=== PATIENT | male | born 1985 | race Hispanic/Latino ===

== ENCOUNTER 2023-06-25 00:39 | Inpatient (IN) | payer OTHER, SELFPAY ==
[2023-06-24 21:57] VITALS: BMI 25.4
[2023-06-24 22:02] VITALS: BP 130/91
--- NOTE | 2023-06-24 22:28 | ED.GENMED ---
History of Present Illness
General
Chief Complaint: Alcohol Problem
Source: patient
Exam Limitations: none
Time Seen by Provider: 06/24/23 22:20
Travel History
Have you had any contact with someone who has COVID-19?: No
Do you have any symptoms of coronavirus? Fever > 100 degrees, chills, cough, shortness of breath, sore throat, loss of taste or smell, muscle aches, or headache?: No
History of Present Illness
History of Present Illness:
27-year-old male complaining of recurrent vomiting started this morning. Drank the last 4 days about a case per day of beer. Last drink this morning. No unusual agitation or hallucinations. History of alcohol use but stopped until the last 3
weeks. Vomited a small amount of blood before ER arrival but not a large glob. No chest pain or shortness of breath.
Past History
Past History
ED Past Medical History: Other (Substance abuse)
Social History
Personal:
Living: with family
Employment: Employed
Review of Systems
Review of Systems
All Other Systems: Not applicable
Respiratory: Reports no symptoms
Cardiac: Reports no symptoms
ABD/GI: Denies abdominal pain
Phy Exam
Physical Exam
Physical Exam:
GENERAL: Alert and oriented. Dry heaving on arrival to the ER. Cooperative.
EYE: Orbits normal.
NECK: Supple
ENT: Pharynx with mild erythema
CARDIAC: Regular rate and rhythm without any obvious murmurs.
LUNGS: Clear breath sounds,normal
ABDOMEN: Soft, without focal tenderness or distention
NEUROLOGICAL: Alert and oriented , grossly non-focal
SKIN: Warm and dry, no rash or lesion, no discoloration, skin intact.
MUSCULOSKELETAL: No edema,no deformity.Good color
PSYCH: Normal and appropriate interaction.
Scores
Withdrawal Assessment of Alcohol
Withdrawal Assessment Completed?: Not applicable
Course
Orders/Labs/Results
Orders:
Orders
06/24/23 22:13
Electrocardiogram (*1) Urgent
Reason for Study: Tachycardia
EKG- Treatment ONCE
06/24/23 22:14
Cardiac Monitoring- Treatment ONCE
06/24/23 22:17
Alcohol Urgent
CMP [Comprehensive Metabolic Panel] Urgent
Complete Blood Count/With Diff Urgent
Lipase Urgent
06/24/23 22:19
Type+Screen Urgent
06/24/23 22:21
PTT Urgent
Prothrombin Time Urgent
06/24/23 22:25
IV Insert/Care/Rem.- Treatment PRN
Urinalysis Reflex To Culture Urgent
0.9% Sodium Chloride 1000 ml [Nss] 1,000 ml IV BOLUS
Ondansetron Injectable [Zofran] 4 mg IV NOW STA
Pantoprazole [Protonix IV] 40 mg IV NOW STA
06/24/23 23:00
0.9% Sodium Chloride 1000 ml [Nss] 1,000 ml Mvi, Adult [Multivitamin] 10 ml Thiamine Injection 100 mg IV 250 mls/hr
06/24/23 23:45
Dextrose 5%/0.9%Sodchl 1000 ml [D5/0.9% Sodium Chloride] 1,000 ml IV 150 mls/hr
Abnormal Lab Results
06/24/23
22:17
WBC 15.5 H 10^3/uL
(4.8-10.8)
Abs Immat Gran (auto) 0.1 H 10^3/uL
(0-0.05)
Absolute Neuts (auto) 13.1 H 10^3/uL
(1.4-6.5)
Immature Gran % 0.6 H %
(0-0.5)
Neutrophils % 84.2 H %
(42.2-75.2)
Lymphocytes % 13.0 L %
(20.5-51.1)
Carbon Dioxide 14 L* mmol/L
(22-30)
Glucose 160 H mg/dl
(70-99)
Calcium 10.4 H mg/dl
(8.4-10.2)
Alkaline Phosphatase 128 H U/L
(38-126)
Total Protein 9.4 H g/dl
(6.3-8.2)
Albumin 5.9 H g/dl
(3.5-5.0)
06/24/23 22:17
06/24/23 22:17
Vital Signs
Initial and Last Documented VS:
Initial Vital Signs
Temp Pulse Resp BP Pulse Ox
98.4 F 110 22 130/91 99
06/24/23 22:02 06/24/23 22:02 06/24/23 22:02 06/24/23 22:02 06/24/23 22:02
Last Documented Vital Signs
Temp Pulse Resp BP Pulse Ox
98.4 F 110 22 130/91 99
06/24/23 22:02 06/24/23 22:02 06/24/23 22:02 06/24/23 22:02 06/24/23 22:02
MDM/Problems Addressed
Differential Diagnosis Includes:
Alcoholic gastritis, alcoholic ketoacidosis, doubt withdrawal. Drank up till this morning. As far as the hematemesis, likely a mild Michelle-Martins tear. Doubt Boerhaave syndrome.
*Critical Care Note
Total Time (30-74mins, 75-104mins- exclusive of procedures): Not Applicable
Update Note
Update Note:
Consistent with alcoholic ketoacidosis. Possible gastritis and possible mild Michelle-Martins tear. Warrants inpatient management
ED Attending Note
-
Portions of this chart may have been created with voice recognition software.� Occasional wrong word or��sound alike� substitutions may have occurred due to the inherent limitations of voice recognition software.
Discharge Plan
Departure
Patient Disposition: Admit
Date of Disposition: 06/25/23
Time of Disposition: 00:05
Presentation/result/management discussed w/ accepting MD/DO: Hospitalist
Discharge Problem:
Alcoholic ketoacidosis, Alcoholic gastritis, Possible Michelle-Martins tear
Prescriptions:
No Action
No Current Medications
0
Referrals:
Isabella Mayorga CRNP [Family Provider] -
Interventions
Interventions:
*Neglect/Abuse Screening Last Done: 06/24/23 22:10
ED- Fall Risk Assessment Last Done: 06/24/23 22:11
*ED COVID-19 Vaccine History Last Done: 06/24/23 22:10
ED- Neurological Assessment Last Done: 06/24/23 22:47
ED-Psychological Assessment Last Done: 06/24/23 22:58
[2023-06-24 22:30] VITALS: BP 135/88
[2023-06-24 22:35] LABS: % Basophils 0.5 % (0-2); % Immature Granulocytes 0.6 % (0-0.5); % Monocytes 1.7 % (1.7-9.3); % Neutrophils 84.2 % (42.2-75.2); Absolute Basophils 0.1 10^3/uL (0-0.2); Absolute Immature Granulocytes 0.1 10^3/uL (0-0.05); Absolute Monocytes 0.3 10^3/uL (0.1-0.6); Absolute Neutrophils 13.1 10^3/uL (1.4-6.5); Hematocrit 46.7 % (39.0-52.0); Hemoglobin 16.9 g/dL (13.0-18.0); Mean Corp Hgb Conc. 36.2 g/dL (33.0-37.0); Mean Corpuscular Hgb 30.8 pg (27.0-31.0); Mean Corpuscular Volume 85.2 fL (80.0-94.0); Mean Platelet Volume 9.3 fL (7.4-10.4); Nucleated Red Blood Cells % 0 % (-); Platelet Count 362 10^3/uL (130-400); Red Blood Cell Count 5.48 10^6/uL (4.70-6.10); Red Cell Dist. Width 13.5 % (11.5-14.5); White Blood Cell Count 15.5 10^3/uL (4.8-10.8)
[2023-06-24 22:51] LABS: INR 1.01; PT 13.1 Sec (11.4-14.6)
--- NOTE | 2023-06-24 22:52 | EDRN ---
started vomiting and has vomited all day. Pt now dry heaving with occ mucus liquid that is coffee ground like.
[2023-06-24 23:00] VITALS: BP 142/102
[2023-06-24] MEDS: NSS 1000 IV (23:00)
[2023-06-24] MEDS: ZOFRAN 4 MG IV (23:06)
[2023-06-24] MEDS: PROTONIX IV 40 MG IV (23:10)
[2023-06-24 23:16] LABS: ALT (SGPT) 23 U/L (0-50); AST (SGOT) 39 U/L (17-59); Albumin 5.9 g/dl (3.5-5.0); Alcohol 84 mg/dl; Alkaline Phosphatase 128 U/L (38-126); Blood Urea Nitrogen 9 mg/dl (9-20); Calcium 10.4 mg/dl (8.4-10.2); Carbon Dioxide 14 mmol/L (22-30); Chloride 104 mmol/L (98-107); Estimated Creatinine Clearance 115 ml/min; Glucose 160 mg/dl (70-99); Lipase 99 U/L (23-300); Potassium 3.9 mmol/L (3.5-5.1); Sodium 139 mmol/L (135-145); Total Bilirubin 0.6 mg/dl (0.2-1.3); Total Protein 9.4 g/dl (6.3-8.2); eGFR > 60.00
[2023-06-24] MEDS: MULTIVITAMIN 1011 MG IV (23:19)
[2023-06-24] MEDS: MULTIVITAMIN 1011 ML IV (23:19)
[2023-06-25] VITALS (7 sets, daily range): BP systolic 104–126; BP diastolic 63–94; BMI 25.3
[2023-06-25] MEDS: D5/0.9% SODIUM CHLORIDE 1000 IV (00:29)
--- NOTE | 2023-06-25 00:32 | HPS.HSE ---
Family Physician
-
Family Physician: SUSSY Clakr
Chief Complaint
-
N/V
History of Present Illness
Patient is a 37y M with no significant PMH who presents to ED complaining of N/V x 24 hours. Patient states that he has a prior history of alcohol overuse. He has been completely sober x 4 years. He has been binge drinking since of
last week. His last drink was around 6AM on Saturday morning. Around 9AM on Saturday, he developed N/V and has had intractable symptoms since. Patient reports upper abdominal pain without radiation to the chest, back or lower abdomen. Emesis was
initially bilious but patient then noted some small streaks of blood in the spittle. He had emesis of some black-appearing material here in the ED.
Patient has been treated with IVFs and states that he currently feels markedly improved from admission.
Medical History
Past Medical History
Past Medical History: Reports None
Past Surgical History: Reports None
Social History
Tobacco: Non-smoker
Alcohol: Binge drinker (No alcohol x 4 years then binge drinking this past weekend.)
Drug: Marijuana (Occasional.)
Family History
Family History: Other (Father: DM)
Allergies / Home Medications
Allergies reflects when Allergies were last updated in [facility].
Home Medications with original date entered in [facility]
Allergy/Medication List:
Allergies
Allergy/AdvReac Type Severity Reaction Status Date / Time
No Known Allergies Allergy Unverified 06/24/23 22:01
Home Medications
No Meds [No Current Medications] 06/24/23
Review of Systems
-
History Source: Patient
A 12 point ROS was completed and negative except as noted: Yes
Constitutional: Reports Fatigue; Denies Fever or Chills
Respiratory: Denies Cough or Trouble Breathing
Cardiac: Denies Chest Pain or Palpitations
Abdomen/GI: Reports Abdominal Pain, Nausea and Vomiting; Denies Diarrhea
: Denies Dysuria or Frequency
Musculoskeletal: Denies Joint Pain or Edema
Neurological: Reports Headache; Denies Dizzy
Psych: Denies Depression or Anxiety
Physical Exam
Vital Signs
Vital Signs
Temp Pulse Resp BP Pulse Ox
98.4 F 110 22 130/91 99
06/24/23 22:02 06/24/23 22:02 06/24/23 22:02 06/24/23 22:02 06/24/23 22:02
Physical Exam
General: Other (37y M in mild distress due to nausea /pain.)
HEENT: Other (Dry MM. Injected sclerae.)
Respiratory: Clear; No Wheezes, Rales or Rhonchi
Cardiac: S1/S2 and Regular Rhythm; No Murmur
GI: Soft, Non Tender, Non Distended and Normal Bowel Sounds
Musculoskeletal: No Clubbing, No Cyanosis and No Edema
Neuro: AO x 3 and Nonfocal/grossly intact
Laboratory Results
-
06/24/23 22:17
06/24/23 22:17
Laboratory Results
PT 13.1 Sec (11.4-14.6) 06/24/23 22:21
INR 1.01 06/24/23 22:21
APTT 24.0 Sec (23.4-35.0) 06/24/23 22:21
Total Bilirubin 0.6 mg/dl (0.2-1.3) 06/24/23 22:17
AST 39 U/L (17-59) 06/24/23 22:17
ALT 23 U/L (0-50) 06/24/23 22:17
Alkaline Phosphatase 128 U/L (38-126) H 06/24/23 22:17
Lipase 99 U/L (23-300) 06/24/23 22:17
Impression/Plan
-
A/P: Patient is a 37y M with no significant PMH who presents to ED complaining of abdominal pain and N/V s/p binge drinking episode.
Alcohol Use Disorder
Alcoholic Ketoacidosis
- Admit for further evaluation and treatment.
- Binge drinking x days followed by intractable N/V for the past 24 hours or so.
- Anion gap acidosis (21) on arrival here c/w AKA.
- IVF support
- Monitor electrolytes and adjust fluids as needed.
- Patient already feels significantly improved from arrival.
- Monitor for any evidence of withdrawal and treat accordingly. Less likely given binge intake and sober x 4 years prior to that.
Hematemesis
- ? small Michelle Martins injury secondary to intractable N/V.
- Patient reports blood streaked spittle and some black emesis since arrival here.
- IV PPI for now.
- Follow H&H.
- Antiemetics / treat AKA as noted above.
- GI evaluation.
DVT Prophylaxis: SCDs
Code Status: Full
--- NOTE | 2023-06-25 02:45 | PTCARENOTE ---
ax3 ambulated to bed without difficulty- afebrile sinus bp wnl- no signs of withdraw- pleasant cooperative. fluids running per orders
[2023-06-25] MEDS: D5/0.9% SODIUM CHLORIDE IV ×2 (03:09→03:10)
[2023-06-25] MEDS: D5LR IV ×3 (03:10)
[2023-06-25] MEDS: D5LR 1000 IV (03:11)
[2023-06-25 05:32] LABS: Hematocrit 38.2 % (39.0-52.0); Hemoglobin 13.6 g/dL (13.0-18.0); Mean Corp Hgb Conc. 35.6 g/dL (33.0-37.0); Mean Corpuscular Hgb 31.1 pg (27.0-31.0); Mean Corpuscular Volume 87.2 fL (80.0-94.0); Mean Platelet Volume 9.7 fL (7.4-10.4); Platelet Count 279 10^3/uL (130-400); Red Blood Cell Count 4.38 10^6/uL (4.70-6.10); Red Cell Dist. Width 13.8 % (11.5-14.5); White Blood Cell Count 16.1 10^3/uL (4.8-10.8)
[2023-06-25 05:59] LABS: ALT (SGPT) 18 U/L (0-50); AST (SGOT) 30 U/L (17-59); Albumin 4.3 g/dl (3.5-5.0); Alkaline Phosphatase 74 U/L (38-126); Blood Urea Nitrogen 11 mg/dl (9-20); Calcium 8.8 mg/dl (8.4-10.2); Carbon Dioxide 24 mmol/L (22-30); Chloride 107 mmol/L (98-107); Direct Bilirubin 0.1 mg/dl (0.0-0.4); Estimated Creatinine Clearance > 125 ml/min; Glucose 125 mg/dl (70-99); Magnesium 1.5 mg/dl (1.6-2.3); Phosphorus 3.5 mg/dl (2.5-4.5); Potassium 3.9 mmol/L (3.5-5.1); Sodium 138 mmol/L (135-145); Total Bilirubin 0.6 mg/dl (0.2-1.3); Total Protein 6.8 g/dl (6.3-8.2); eGFR > 60.00
[2023-06-25 07:04] LABS: Urine Albumin Trace (Neg - Trace); Urine Bilirubin Negative (Negative); Urine Character Clear (Clear); Urine Color Yellow; Urine Glucose Negative (Negative); Urine Ketone 1+ (Negative); Urine Leukocyte Negative (Negative); Urine Nitrite Negative (Negative); Urine Occult Blood Negative (Negative); Urine Specific Gravity 1.015 (<1.030); Urine Urobilinogen Negative (Neg - 1+); Urine pH 6.5 (5.0-9.0)
--- NOTE | 2023-06-25 07:10 | CON.GI ---
Addendum entered and electronically signed by Juan Vergara MD 06/25/23 13:53:
I saw and examined the patient.
The PA's note was reviewed and I agree with the note.
Comment:
Pt is a 37 year old male with h/o marijuana use, prior ETOH abuse with recent relapse�during p/w vomiting, which began bilious then became streaks of blood then dark emesis. On admission concern for ETOH ketoacidosis.
Impression / Rec:
1. EtOH ketoacidosis - resolving. Pt was sober for past 4 years or so then recently relapsed and drank alot during 's day. Had multiple episodes of vomiting which began bilious then became streaks of blood, suspicious for MW tear. Hgb
normal. Strongly encouraged pt to stop drinking alcohol. Can resume diet. Ok with d/c home from GI standpoint.
Original Note:
Consultation
-
Date/Time Consultation Requested: 06/25/23 0230
Date/Time Consultation Performed: 06/25/23 0910
Requesting Provider: Jeovany Rooney DO
Performing Provider: SUSSY Hargrove, Juan Vergara MD
Reason for Consultation: EOTH abuse
Medical History
Chief Complaint / HPI
Chief Complaint: vomiting/hematemesis
History of Present Illness:
Pt is a 37yo presents with hx Marijuana use, prior substance abuse and ETOH abuse with current relapse with onset of vomiting. Pt was sober for 4 years then began to drink since last . He began with nausea/vomiting with bilious then
streaks of blood then dark emesis. On admission concern for ETOH ketoacidosis.
Pt states marked improvement this am with no further nausea or vomiting . He denies dysphagia, GERD, abdominal pain, diarrhea, constipation, or rectal bleeding. No hx EGD or colonoscopy in past.
Past Medical History
Past Medical History: Other (ETOH abuse quit 4 years ago with relapse, prior substance abuse )
Social History
Tobacco: Non-Smoker
Alcohol: Former
Drug: Marijuana
Personal:
Living: With Family
Employment: Employed
Family History
Family History: Other (no family hx colon CA or polyps)
Allergies / Home Medications
Allergy/AdvReac Type Severity Reaction Status Date / Time
No Known Allergies Allergy Unverified 06/24/23 22:01
Medication Instructions Recorded
No Meds [No Current Medications] 06/24/23
Review of Systems
-
History Source: Patient
Constitutional: Reports No Symptoms
EENT: Reports No Symptoms
Respiratory: Reports No Symptoms
Abdomen/GI: Reports Nausea and Vomiting (with streaks of blood after multiple episodes of vomiting )
: Reports No Symptoms
Musculoskeletal: Reports No Symptoms
Skin: Reports No Symptoms
Neurological: Reports Weakness
Endocrine: Reports No Symptoms
Hematologic/Lymphatic: Reports Bleeding
Vital Signs
Temp Pulse Resp BP Pulse Ox
96.7 F L 95 17 107/69 96
06/25/23 03:35 06/25/23 06:00 06/25/23 06:00 06/25/23 06:00 06/25/23 02:00
Physical Exam
Exam
General: Well Developed, Well Nourished and No Apparent Distress
HEENT: Normocephalic and Anicteric
Respiratory: Clear
Cardiac: Regular Rhythm
GI: Soft, Non Tender and Non Distended
Musculoskeletal: No Clubbing and No Cyanosis
Skin: Warm and Dry
Neuro: Awake, Alert and AO x 3
Psych: Calm
Results
WBC 16.1 10^3/uL (4.8-10.8) H 06/25/23 04:40
Hgb 13.6 g/dL (13.0-18.0) 06/25/23 04:40
Hct 38.2 % (39.0-52.0) L 06/25/23 04:40
MCV 87.2 fL (80.0-94.0) 06/25/23 04:40
Plt Count 279 10^3/uL (130-400) D 06/25/23 04:40
Absolute Neuts (auto) 13.1 10^3/uL (1.4-6.5) H 06/24/23 22:17
PT 13.1 Sec (11.4-14.6) 06/24/23 22:21
INR 1.01 06/24/23 22:21
APTT 24.0 Sec (23.4-35.0) 06/24/23 22:21
Sodium 138 mmol/L (135-145) 06/25/23 04:40
Potassium 3.9 mmol/L (3.5-5.1) 06/25/23 04:40
Chloride 107 mmol/L (98-107) 06/25/23 04:40
Carbon Dioxide 24 mmol/L (22-30) 06/25/23 04:40
BUN 11 mg/dl (9-20) 06/25/23 04:40
Creatinine 0.6 mg/dL (0.7-1.3) L 06/25/23 04:40
Calcium 8.8 mg/dl (8.4-10.2) D 06/25/23 04:40
Total Bilirubin 0.6 mg/dl (0.2-1.3) 06/25/23 04:40
AST 30 U/L (17-59) 06/25/23 04:40
ALT 18 U/L (0-50) 06/25/23 04:40
Alkaline Phosphatase 74 U/L (38-126) 06/25/23 04:40
Lipase 99 U/L (23-300) 06/24/23 22:17
Diagnostic Image Results:
Prior GI Procedures:
EGD: none
Colonoscopy: none
Assessment / Plan
-
Pt is a 37yo presents with hx Marijuana use, prior ETOH abuse with current relapse with onset of vomiting. Pt was sober for 4 years then began to drink since last . He began with nausea/vomiting with bilious then streaks of blood then
dark emesis. On admission concern for ETOH ketoacidosis.
-Binge ETOH use with hx sobriety for 4 years
-ETOH ketoacidosis
-N/V with hematemesis
-leukocytosis
-hypomagnesemia
-hx prior substance abuse clean for 12 years
-marijuana use
PLAN:
etiology of symptoms related to ETOH binge with vomiting then possible MW tear vs other
pt marked improvement today
monitor for recurrent vomiting
trend hbg
acidosis corrected
will allow clear diet if tolerating then advance to low fat
monitor with withdrawal
t/c EGD if any recurrent vomiting or hematemesis but will hold for now with improvement
discussed ETOH abstinence and continued abstinence from substance abuse -- social work for resources
-
-
Thank you for consultation and allowing me to participate in the patient's care. Please call the client relations specialist GI physician during the after hours with any questions or concerns.
[2023-06-25 07:19] LABS: Amphetamines Negative (Negative); Barbiturates Negative (Negative); Benzodiazepines Negative (Negative); Buprenorphine Negative (Negative); Cocaine Negative (Negative); Methadone Negative (Negative); Methamphetamines Negative (Negative); Opiates Negative (Negative); Phencyclidine Negative (Negative); Tricyclic Antidepressants Negative (Negative)
[2023-06-25 07:20] LABS: Marijuana Positive (Negative)
[2023-06-25 08:43] LABS: Glycohemoglobin (HgbA1c) 5.7 % (4.0-5.6)
--- NOTE | 2023-06-25 09:45 | W.PN.HOSP.TC ---
Addendum entered and electronically signed by Suellen Og MD 06/25/23 10:11:
hypomagnesemia--replete
Original Note:
Today's Communication/Plan
-
anticipate d/c later today if tolerates food
Assessment / Plan
Assessment / Plan
pt is a 37 year old male
Alcohol Use Disorder with Alcoholic Ketoacidosis--rwsolved--due to binge drinking x 3 days--was sober for 4 years prior--stop IVF
Hematemesis-�- ? small Michelle Martins injury secondary to intractable N/V--apprec GI--agree with feeding and if tolerates d/c--cont PPI
�
DVT Prophylaxis:� SCDs
Code Status:� Full
Anticipated Discharge: Today
Subjective/Interval History
-
Date of Service: June 25, 2023
pt feels much improved
Objective Data
-
Labs:
Laboratory Results
06/24/23 06/24/23 06/25/23
22:17 22:21 04:40
WBC 15.5 H 16.1 H
Hgb 16.9 13.6
Hct 46.7 38.2 L
Plt Count 362 279 D
PT 13.1
INR 1.01
APTT 24.0
Sodium 139 138
Potassium 3.9 3.9
Chloride 104 107
Carbon Dioxide 14 L* 24
BUN 9 11
Creatinine 0.8 0.6 L
Glucose 160 H 125 H
Calcium 10.4 H 8.8 D
Total Bilirubin 0.6 0.6
AST 39 30
ALT 23 18
Alkaline Phosphatase 128 H 74
Vital Signs:
max temp for 24 hours
06/24/23
22:02
Temp 98.4 F
Vital Signs
Temp Pulse Resp BP Pulse Ox
98.3 F 95 17 107/69 96
06/25/23 07:20 06/25/23 06:00 06/25/23 06:00 06/25/23 06:00 06/25/23 02:00
I&O
06/24/23 06/25/23 06/26/23
06:59 06:59 06:59
Intake Total 1240 / 1240
Output Total 600 / 600
Balance 640 / 640
Review of Systems
-
All other systems: Reviewed and negative
Physical Exam
-
General: Well Developed, Well Nourished and No Apparent Distress
HEENT: Normocephalic and Atraumatic
Respiratory: Clear to Auscultation; Negative Wheezes or Rhonchi
Cardiac: Regular Rhythm and S1/S2; Negative Murmur
GI: Soft, Nontender, Nondistended and Normal Bowel Sounds
Musculoskeletal: No Clubbing, No Cyanosis and No Edema
Neuro: Awake
[2023-06-25] MEDS: THIAMINE INJECTION 200 MG IV (09:46)
[2023-06-25] MEDS: PROTONIX IV 40 MG IV (09:47)
[2023-06-25] MEDS: NSS (PRESERVATIVE FREE) 10 ML IV (09:48)
[2023-06-25] MEDS: FOLVITE 1 MG PO (09:48)
--- NOTE | 2023-06-25 09:49 | CM ---
Patient seen at bedside with physician. Patient states that he lives with and children. Referral sent to [facility] and [facility] asked for face sheet to be sent to them at [phone]. Patient agreed to talk to [facility] and referral called to [facility].
Patient for probable discharge later today. CM will continue to follow for discharge planning needs.
Plan; home with [facility] referral, [facility] and patient family to provide transportation
[2023-06-25] MEDS: MAG-TAB SR 84 MG PO (11:33)
[2023-06-25 12:03] LABS: Glucose - Point of Care 119 mg/dl (70-99)
--- NOTE | 2023-06-25 12:38 | PTOTSP ---
Spoke with the patient - the patient is independent and has had no changes in his mobility or physical functioning since admission. No PT needs at this time, will sign off.
--- NOTE | 2023-06-25 14:12 | PTCARENOTE ---
Pt for d/c home. Instructions and prescriptions reviewed with pt. IV and monitor equipment removed. Belongings collected from room. D/c home with family member- ambulated off unit.
--- NOTE | 2023-06-26 06:58 | W.DCSUMMARY ---
Discharge Summary
Discharge Data
Date of Admission: 06/25/23
Date of Discharge: 06/25/23
-
Pending Results: No
Hospital Course
Primary care physician : Isabella Mayorga
Principal Discharge diagnosis : Alcohol use disorder with alcoholic ketoacidosis, hematemesis, hypomagnesemia
Chronic Discharge diagnosis : Alcohol use disorder
Hospital Course : Patient was a 37-year-old male without any significant past medical history who presented complaining of nausea and vomiting for 24 hours. Patient is a former alcoholic and had a prior history of alcohol overuse and has been sober
for 4 years. He had binge drinking over the weekend. Last drink was around 6 AM on the Saturday prior to admission. He developed nausea and vomiting and had intractable symptoms. He reported a little bit of blood in his
hospital. Patient also had some black appearing emesis in the emergency department. Patient was treated with IV fluids and is markedly improved. Patient was admitted.
Problem #1: Alcohol use disorder with alcoholic ketoacidosis. This was due to binge drinking for 3 days or so prior to admission. He is willing to get back to being sober. He understands what he did was 'stupid'. He was given IV fluids. Alcohol
withdrawal protocol was started but he had no signs of withdrawal. Patient tolerated diet and was stable for discharge.
Problem #2: Hematemesis. This was likely from vomiting. GI was consulted. Plan was to advance diet and if tolerated discharge home. No interventions were planned.
Problem 3: Hypomagnesemia. This was treated and repleted.
Patient is stable for discharge home at this time. If there are any questions regarding this dictation or his hospital stay, please not hesitate to call. Our office number is [phone].
Discharge Plan
-
Patient Disposition: Home (Routine Discharge)
Discharge Diagnosis/Procedures: Alcohol use disorder with alcoholic ketoacidosis, mild hematemesis, hypomagnesemia
Condition: Good
Diet: As tolerated and Regular
Additional Diets: Must avoid all alcohol
Activity: As tolerated
Driving Restrictions: As prior to admission
Bathing Restrictions: None
Referrals:
Isabella Mayorga CRNP [Family Provider] - in less than 1 week
Prescriptions:
New
thiamine HCl (vitamin B1) 100 mg Tablet
100 mg PO BID Qty: 0 0RF
folic acid 1 mg Tablet
1 mg PO DAILY Qty: 0 0RF
omeprazole 20 mg capsule,delayed release(DR/EC)
20 mg PO DAILY Qty: 20 0RF
Discharge Orders:
Discharge Patient (As Directed); Ordered 06/25/23
Ordered By: Suellen Og
Discharge Date and Time
Discharge Date/Time: 06/25/23 14:22
Print Language: SLOVAK
== END 2023-06-25 14:22 | disposition home or self-care (01) | DRG 896 ==
LOC: IMU 00:39
PROVIDERS: Student in an Organized Health Care Education/Training Program; ADMITTING PHYSICIAN Hospitalist; ATTENDING PHYSICIAN Internal Medicine; CONSULT PHYSICIAN Internal Medicine Gastroenterology; EMERGENCY PHYSICIAN Emergency Medicine; FAMILY PHYSICIAN Nurse Practitioner Acute Care
DX: F10.10 Alcohol abuse, uncomplicated (principal); K22.6 Gastro-esophageal laceration-hemorrhage syndrome; E87.29 Other acidosis; R00.0 Tachycardia, unspecified; F12.90 Cannabis use, unspecified, uncomplicated; D72.829 Elevated white blood cell count, unspecified; E83.42 Hypomagnesemia; F19.11 Other psychoactive substance abuse, in remission
CPT/HCPCS: 80053; 80306; 81003; 82077; 82248; 82962; 83036; 83690; 83735; 84100; 85025; 85027; 85610; 85730; 86850; 86900; 86901; 93005; 96365; 96366; 96375; 99285

== ENCOUNTER 2024-04-30 09:50 | Emergency (ER) | payer SELFPAY ==
[2024-04-30 09:54] VITALS: BP 166/99
[2024-04-30 10:22] LABS: % Basophils 0.6 % (0-2); % Immature Granulocytes 0.3 % (0-0.5); % Monocytes 2.9 % (1.7-9.3); % Neutrophils 87.2 % (42.2-75.2); Absolute Basophils 0.1 10^3/uL (0-0.2); Absolute Eosinophils 0.1 10^3/uL (0-0.7); Absolute Monocytes 0.4 10^3/uL (0.1-0.6); Absolute Neutrophils 10.9 10^3/uL (1.4-6.5); Hemoglobin 14.9 g/dL (13.0-18.0); Mean Corp Hgb Conc. 34.7 g/dL (33.0-37.0); Mean Corpuscular Hgb 30.1 pg (27.0-31.0); Mean Corpuscular Volume 86.9 fL (80.0-94.0); Mean Platelet Volume 9.5 fL (7.4-10.4); Nucleated Red Blood Cells % 0 % (-); Platelet Count 286 10^3/uL (130-400); Red Blood Cell Count 4.95 10^6/uL (4.70-6.10); Red Cell Dist. Width 12.5 % (11.5-14.5); White Blood Cell Count 12.5 10^3/uL (4.8-10.8)
[2024-04-30 10:29] LABS: COVID-19 Antigen Negative (Negative)
--- NOTE | 2024-04-30 11:07 | ED.GENMED ---
History of Present Illness
General
Chief Complaint: Fatigue
Source: patient
Exam Limitations: none
Time Seen by Provider: 04/30/24 11:06
Nursing documentation reviewed up to this point in time: agreed with
History of Present Illness
History of Present Illness:
38-year-old male with a past medical history of heroin abuse, presents emergency department today with concerns of nausea and vomiting for the past week as well as intermittent weakness. He denies any fevers or chills. He denies any diarrhea.
Patient reports that this feels similar to withdrawing from heroin however patient has not done heroin in 17 years. Patient notes intermittent abdominal cramping. He currently does not have any abdominal pain. He also notes intermittent
exertional shortness of breath. He denies chest pain. He has not been in contact with anyone sick. He denies any recent travel outside the country. He denies any history of any abdominal surgeries. He also notes his appetite has been decreased.
He denies rectal bleeding, dark tarry stools, bloody vomitus.
Past History
Past History
ED Past Medical History: Other (Substance abuse)
Social History
Personal:
Living: with family
Employment: Employed
Review of Systems
Review of Systems
All Other Systems: ROS reviewed and negative except as documented in HPI and ROS
Phy Exam
Physical Exam
Physical Exam:
General: Patient is well appearing and in no acute distress; non-toxic
Skin: Warm and dry, no rashes or lesions
Head: Normocephalic, atraumatic
Eyes: Sclera non-icteric. EOMs intact. PERRLA.
Cardiac: Regular rate and rhythm, no murmurs
Peripheral Vascular: No lower extremity swelling or edema
Pulm: Normal respiratory effort, no wheezes, rales, or rhonchi
Abdomen: No abdominal tenderness to palpation, no palpable masses, no guarding, no rebound tenderness
Neuro: CN II-XII intact, no focal neurologic deficits.
Psychiatric: Appropriate mood and affect.
Course
Orders/Labs/Results
Orders:
Orders
04/30/24 10:05
COVID-19 Antigen Urgent
Source: Nasal Swab
Complete Blood Count/With Diff Urgent
Comprehensive Metabolic Panel Urgent
Lipase Urgent
Comment: ADD
Influenza A+B Rapid Molecular Urgent
CHELSY Source: Nasal Swab
Specimen Description:
04/30/24 11:20
Add On- LAB Urgent
Tests Added?: lipase
IV Insert/Care/Rem.- Treatment PRN
Ondansetron Injectable [Zofran] 4 mg IV NOW STA
04/30/24 11:21
CR Chest - 2 Views Urgent
Comment:
Reason For Exam: exertional shortness of breath
04/30/24 11:26
0.9% Sodium Chloride 1000 ml [Nss] 1,000 ml IV BOLUS
04/30/24 13:52
Diphenhydramine [Benadryl] 12.5 mg IV NOW STA
Metoclopramide [Reglan] 10 mg IV NOW STA
04/30/24 13:59
0.9% Sodium Chloride 250 ml [Nss] 250 ml IV BOLUS
Abnormal Lab Results
04/30/24
10:05
WBC 12.5 H 10^3/uL
(4.8-10.8)
Absolute Neuts (auto) 10.9 H 10^3/uL
(1.4-6.5)
Absolute Lymphs (auto) 1.0 L 10^3/uL
(1.2-3.4)
Neutrophils % 87.2 H %
(42.2-75.2)
Lymphocytes % 8.0 L %
(20.5-51.1)
Glucose 122 H mg/dl
(70-99)
04/30/24 10:05
04/30/24 10:05
Vital Signs
Initial and Last Documented VS:
Initial Vital Signs
Temp Pulse Resp BP Pulse Ox
97.9 F 72 16 166/99 100
04/30/24 09:54 04/30/24 09:54 04/30/24 09:54 04/30/24 09:54 04/30/24 09:54
Last Documented Vital Signs
Temp Pulse Resp BP Pulse Ox
98.2 F 68 18 105/64 98
04/30/24 13:49 04/30/24 16:00 04/30/24 16:00 04/30/24 16:00 04/30/24 16:00
MDM/Problems Addressed
Differential Diagnosis Includes:
viral syndrome, gastroenteritis, alcoholic ketoacidosis, pancreatitis
MDM/Problems Addressed:
38-year-old male presents emergency department today with concerns of nausea and vomiting as well as body aches. He also has intermittent subjective chills. He states that this feels similar to when he was withdrawing from heroin in the past
however patient has been clean from opioids for the past 16 years as well as alcohol for the past few months. On exam, patient is well-appearing in no acute distress, he has no abdominal tenderness on his exam and he is afebrile. Of note, patient
was recently seen here last year in May for alcoholic ketoacidosis. Based on his lab work, there is no evidence of acidosis and patient states that he has not had some any drink in months. Do not suspect alcoholic ketoacidosis at this time. Do
not suspect acute opioid withdrawal. Patient states that he also has intermittent exertional shortness of breath. Suspect viral syndrome. X-ray was done which is negative for any evidence of pneumonia. COVID and flu initial testing negative.
Lipase within normal range do not suspect pancreatitis. Do not suspect gastritis. Discussed this case with my attending who agrees with plan, patient stable for discharge. Patient initially treated with Zofran IV fluids however patient with p.o.
challenge started to have more vomiting. Patient subsequently received Reglan and Benadryl and after drinking some water, he was able to tolerate PO.
Patient does not have primary care provider. I sent his information to the primary care hotline and I also gave him information for [facility] so that he can be reassessed. Return precautions discussed.
Chronic conditions affecting care:
substance abuse
*Pulse Oximetry
Patient hypoxic: no
*Critical Care Note
Total Time (30-74mins, 75-104mins- exclusive of procedures): Not Applicable
Data Reviewed
Review of Other/Old Records Reveals: Records (Reviewed discharge summary from 06/26/2023)
Source: patient and records
Patient Management
Escalation/DeEscalation of care consider admission/obs:
admit not indicated
ED Attending Note
-
Portions of this chart may have been created with voice recognition software.� Occasional wrong word or��sound alike� substitutions may have occurred due to the inherent limitations of voice recognition software.
Discharge Plan
Departure
Patient Disposition: Home (Routine Discharge)
Date of Disposition: 04/30/24
Time of Disposition: 15:21
Patient with high blood pressure during this ER visit?: Yes
Condition: Good
Discharge Problem:
Nausea & vomiting, Acute viral syndrome
Instructions: BLOOD PRESSURE, Acute Nausea and Vomiting
Prescriptions:
New
ondansetron HCl 4 mg tablet
4 mg PO Q4H PRN (Reason: nausea and vomiting) Qty: 8 0RF
No Action
thiamine HCl (vitamin B1) 100 mg Tablet
100 mg PO BID Qty: 0 0RF
folic acid 1 mg Tablet
1 mg PO DAILY Qty: 0 0RF
omeprazole 20 mg capsule,delayed release(DR/EC)
20 mg PO DAILY Qty: 20 0RF
Referrals:
[facility] [Provider Group] - Call in 1-3 days for appt
NONE,* [Family Provider] -
Stand Alone Forms: Return to Work
Activity Restrictions/Additional Instructions:
Your information has been sent to the PCP request hotline. You should receive a call to schedule an appointment. If not, you can call [facility] primary care at � to schedule an appointment or schedule an appointment to see the
free clinic. I recommend reassessment in one week.
Zofran has been sent to your pharmacy. You can take one tablet every 4 hours as needed.
PLEASE RETURN EMERGENCY DEPARTMENT SHOULD YOU DEVELOP ABDOMINAL PAIN, INTRACTABLE NAUSEA OR VOMITING, PERSISTENT FEVERS, CHEST PAIN, SHORTNESS OF BREATH, DIZZINESS, LIGHTHEADEDNESS, OR SIGNS OR SYMPTOMS CONCERNING TO YOU.
Interventions
Interventions:
*Risk Screen - Suicide Last Done: 04/30/24 09:55
*General Assessment Last Done: 04/30/24 11:50
*Neglect/Abuse Screening Last Done: 04/30/24 09:55
ED- Fall Risk Assessment Last Done: 04/30/24 11:50
*ED COVID-19 Vaccine History Last Done: 04/30/24 11:50
*Nursing Disposition Last Done: 04/30/24 16:00
Discharge Date and Time
Discharge Date/Time: 04/30/24 16:05
Print Language: BURUNDIAN
[2024-04-30 11:24] LABS: ALT (SGPT) 20 U/L (0-50); AST (SGOT) 26 U/L (17-59); Albumin 4.9 g/dl (3.5-5.0); Alkaline Phosphatase 101 U/L (38-126); Blood Urea Nitrogen 16 mg/dl (9-20); Calcium 9.2 mg/dl (8.4-10.2); Carbon Dioxide 22 mmol/L (22-30); Chloride 103 mmol/L (98-107); Glucose 122 mg/dl (70-99); Potassium 4.3 mmol/L (3.5-5.1); Sodium 139 mmol/L (135-145); Total Bilirubin 0.6 mg/dl (0.2-1.3); Total Protein 7.5 g/dl (6.3-8.2); eGFR > 60.00
[2024-04-30 11:47] LABS: Lipase 99 U/L (23-300)
[2024-04-30] MEDS: NSS 1000 IV (11:49)
[2024-04-30 11:50] VITALS: BMI 24.5
[2024-04-30] MEDS: ZOFRAN 4 MG IV (11:50)
[2024-04-30 13:49] VITALS: BP 147/83
[2024-04-30] MEDS: BENADRYL 12.5 MG IV (14:07)
[2024-04-30] MEDS: REGLAN 10 MG IV (14:08)
[2024-04-30] MEDS: NSS 250 IV (14:12)
[2024-04-30 16:00] VITALS: BP 105/64
== END 2024-04-30 16:05 | disposition home or self-care (01) ==
LOC: EMR 09:50
PROVIDERS: Emergency Medicine; EMERGENCY PHYSICIAN Emergency Medicine
DX: R11.2 Nausea with vomiting, unspecified (principal); B34.9 Viral infection, unspecified
CPT/HCPCS: 99283; 96374; 96375; 96361; 71046; 80053; 83690; 85025; 87502; 87811

== ENCOUNTER 2025-03-20 16:02 | Emergency (ER) | payer OTHER, SELFPAY ==
[2025-03-20 16:05] VITALS: BP 167/116
--- NOTE | 2025-03-20 17:07 | ED.GENMED ---
History of Present Illness
General
Chief Complaint: Alcohol Problem
Source: patient
Exam Limitations: none
Time Seen by Provider: 03/20/25 16:33
History of Present Illness
History of Present Illness:
39yoM with a history of alcohol abuse presenting for detox evaluation. Patient typically drinks about a six pack of beer and 2-3 shots of Patron daily. Last drink was 6 hours ago and he is interested in rehab placement. He currently reports
abdominal cramping which he gets from time to time between drinks and typically improves after drinking a beer. He also endorses shortness of breath. He denies any chest pain, vomiting, diarrhea. No prior history of withdrawal seizures.
Past History
Past History
ED Past Medical History: Other (Substance abuse)
Social History
Personal:
Living: with family
Employment: Employed
Phy Exam
General Physical Exam
General Presentation: well appearing and no apparent distress
General Skin: warm and dry
General Habitus: normal
General Mental: alert
ENT Exam
ENT Exam: normocephalic
Cardiovascular Exam
Cardiovascular Exam: regular rate/rhythm
Pulmonary Exam
Pulmonary Exam: lungs clear, no respiratory distress, no rales, no crackles, no rhonchi and no wheezing
Gastrointestinal Exam
Gastrointestinal Exam: non tender, soft and non distended
Neurological Exam
Neurological Exam: alert
[place] Coma Scale
Eye Opening: Spontaneous
Verbal Response: Oriented
Motor Response: Obeys Commands
GCS Total Score: 15
Skin Exam
Skin Exam: normal color and warm/dry
Psychiatric Exam
Psychiatric Exam: normal mood/affect
Scores
Withdrawal Assessment of Alcohol
Withdrawal Assessment Completed?: No
Course
Orders/Labs/Results
Orders:
Orders
03/20/25 17:06
Electrocardiogram (*1) Urgent
Reason for Study: QTc Monitoring
Cardiac Monitoring- Treatment ONCE
EKG- Treatment ONCE
0.9% Sodium Chloride 1000 ml [Nss] 1,000 ml IV BOLUS
Lorazepam [Ativan] 1 mg PO NOW STA
03/20/25 17:42
Complete Blood Count/With Diff Urgent
Comprehensive Metabolic Panel Urgent
Lipase Urgent
Magnesium Urgent
Troponin I Urgent
03/20/25 19:44
Chlordiazepoxide HCl [Librium] 50 mg PO ONCE ONE
Abnormal Lab Results
03/20/25
17:42
MCH 31.8 H pg
(27.0-31.0)
BUN 5 L mg/dl
(9-20)
Glucose 109 H mg/dl
(70-99)
Total Protein 8.7 H g/dl
(6.3-8.2)
Albumin 5.1 H g/dl
(3.5-5.0)
03/20/25 17:42
03/20/25 17:42
Vital Signs
Initial and Last Documented VS:
Initial Vital Signs
Temp Pulse Resp BP Pulse Ox
98.3 F 72 18 167/116 96
03/20/25 16:05 03/20/25 16:05 03/20/25 16:05 03/20/25 16:05 03/20/25 16:05
Last Documented Vital Signs
Temp Pulse Resp BP Pulse Ox
98.3 F 99 13 167/116 97
03/20/25 16:05 03/20/25 17:45 03/20/25 17:45 03/20/25 16:05 03/20/25 17:45
MDM/Problems Addressed
Differential Diagnosis Includes:
39yoM here for detox evaluation. Hx of alcohol abuse, last drink 6 hours ago. Interested in rehab. C/o abdominal cramping although abdominal exam benign. Also endorses SOB. Lungs CTA and oxygen saturation 96% on exam. No tachycardia, diaphoresis, or
tremulousness noted.
Initial ED plan: Check abdominal labs, magnesium, and troponin/EKG. Will give dose of PO Ativan and contact [facility].
*Pulse Oximetry
SaO2: 96
Oxygen Mode of Delivery: Room air
Patient hypoxic: no
*EKG
Interpreted by ED Provider?: Yes
EKG Intrepretation Date: 03/20/25
Heart Rate: 95
Rate: normal
Rhythm: sinus
[place]: right axis deviation
Interval: normal interval
QRS Pattern: normal QRS
Ischemia: no ischemia
*Critical Care Note
Total Time (30-74mins, 75-104mins- exclusive of procedures): Not Applicable
Update Note
Update Note:
Labs unremarkable including normal LFTs and lipase. EKG shows NSR without ischemic changes and troponin WNL. [facility] unable to place patient today. He does not have health insurance and his license is from [place] despite him living in [place]
[facility]. Patient will return to the ED on Saturday for placement when he is able to bring additional documents/proof of address so that count includes the [facility] funding can be obtained. In the meantime, will provide a 48 hour prescription for a Librium taper. He was
advised to not drink alcohol while taking this medication. Patient in agreement and was discharged in stable condition.
ED Attending Note
-
Portions of this chart may have been created with voice recognition software.� Occasional wrong word or��sound alike� substitutions may have occurred due to the inherent limitations of voice recognition software.
Discharge Plan
Departure
Patient Disposition: Home (Routine Discharge)
Date of Disposition: 03/20/25
Time of Disposition: 19:48
Patient with high blood pressure during this ER visit?: Yes
Discharge Problem:
Alcohol withdrawal
Instructions: Alcohol Withdrawal (DC)
Prescriptions:
New
chlordiazepoxide HCl 25 mg capsule
See Rx Instructions .ROUTE .COMPLEX Qty: 14 0RF
Rx Instructions:
Take 50 mg PO every 6 hours on day 1 and 50mg every 8 hours on day 2
No Action
thiamine HCl (vitamin B1) 100 mg Tablet
100 mg PO BID Qty: 0 0RF
folic acid 1 mg Tablet
1 mg PO DAILY Qty: 0 0RF
omeprazole 20 mg capsule,delayed release(DR/EC)
20 mg PO DAILY Qty: 20 0RF
ondansetron HCl 4 mg tablet
4 mg PO Q4H PRN (Reason: nausea and vomiting) Qty: 8 0RF
Referrals:
Maxwell Chau MD [Family Provider, Internal Medicine]
Activity Restrictions/Additional Instructions:
Take Librium as prescribed. Do NOT take this with alcohol.
Please return to the ER on Saturday for rehab placement.
Interventions
Interventions:
*General Assessment Last Done: 03/20/25 16:08
*Neglect/Abuse Screening Last Done: 03/20/25 16:05
*ED COVID-19 Vaccine History Last Done: 03/20/25 17:51
*ED Influenza Vaccine History Last Done: 03/20/25 17:51
[facility] Risk Assessment Tool Last Done: 03/20/25 17:48
*Risk Screen - Suicide (C-SSRS) Last Done: 03/20/25 16:08
*Nursing Disposition Last Done: 03/20/25 20:07
ED- Neurological Assessment Last Done: 03/20/25 17:52
ED-Psychological Assessment Last Done: 03/20/25 17:52
Discharge Date and Time
Discharge Date/Time: 03/20/25 20:07
Print Language: HUNGARIAN
[2025-03-20] MEDS: ATIVAN 1 MG PO (17:34)
[2025-03-20] MEDS: NSS 1000 IV (17:42)
[2025-03-20 17:52] LABS: Hematocrit 46.0 % (39.0-52.0); Hemoglobin 16.5 g/dL (13.0-18.0); Mean Corp Hgb Conc. 35.9 g/dL (33.0-37.0); Mean Corpuscular Volume 88.6 fL (80.0-94.0); Nucleated Red Blood Cells % 0 % (-); Platelet Count 285 10^3/uL (130-400); Red Cell Dist. Width 12.3 % (11.5-14.5)
[2025-03-20 18:06] LABS: ALT (SGPT) 38 U/L (0-50); AST (SGOT) 50 U/L (17-59); Albumin 5.1 g/dl (3.5-5.0); Alkaline Phosphatase 99 U/L (38-126); Blood Urea Nitrogen 5 mg/dl (9-20); Calcium 9.3 mg/dl (8.4-10.2); Carbon Dioxide 27 mmol/L (22-30); Chloride 102 mmol/L (98-107); Glucose 109 mg/dl (70-99); Lipase 299 U/L (23-300); Magnesium 2.1 mg/dl (1.6-2.3); Potassium 4.3 mmol/L (3.5-5.1); Sodium 141 mmol/L (135-145); Total Protein 8.7 g/dl (6.3-8.2); eGFR > 60.00
[2025-03-20 18:17] LABS: Troponin I < 0.012 ng/ml
[2025-03-20] MEDS: LIBRIUM 50 MG PO (19:53)
--- NOTE | 2025-03-20 20:06 | EDRN ---
BCARES in with patient and patient to be discharged home and to come back saturday for placement
== END 2025-03-20 20:07 | disposition home or self-care (01) ==
LOC: EMR 16:02
PROVIDERS: Physician Assistant; EMERGENCY PHYSICIAN Emergency Medicine; FAMILY PHYSICIAN Internal Medicine
DX: F10.139 Alcohol abuse with withdrawal, unspecified (principal); Z59.71 Insufficient health insurance coverage
CPT/HCPCS: 99284; 96360; 80053; 83690; 83735; 84484; 85025; 93005